=== PATIENT | male | born 1995 | race African-American/Black ===

== ENCOUNTER 2025-02-05 09:37 | Emergency (ER) | payer OTHER ==
[~2025-02-05] VITALS: Ht 170.2 cm; Wt 56.0 kg
[2025-02-05 09:39] VITALS: TEMP 98.2
[2025-02-05 10:26] LABS: BASOPHILS % (AUTO) 1.1 % (0.0-2.0); HEMATOCRIT 47.2 % (41-53); LYMPHOCYTES # (AUTO) 1.7 K/uL (1.0-4.8); MEAN CORPUSCULAR HEMOGLOBIN 26.4 pg (26.0-34.0); MEAN CORPUSCULAR HGB CONC 31.8 G/dL (31.0-37.0); MEAN CORPUSCULAR VOLUME 83 fL (80-100); MONOCYTES # (AUTO) 0.5 K/uL (0.1-1.0); MONOCYTES % (AUTO) 8.6 % (2.0-9.0); NEUTROPHILS # (AUTO) 3.4 K/uL (1.8-7.7); NEUTROPHILS % (AUTO) 58.3 % (40.0-70.0); PLATELET COUNT (AUTO) 228 K/uL (150-450); RED BLOOD CELL COUNT(AUTO) 5.67 MIL/uL (4.50-5.90); RED CELL DISTRIBUTION WIDTH 13.5 % (11.5-14.5); WHITE BLOOD COUNT (AUTO) 5.8 K/uL (4.5-11.0)
[2025-02-05 10:39] LABS: ANION GAP 4 mmol/L (8-16); CALCIUM, TOTAL 9.5 mg/dL (8.8-10.5); CARBON DIOXIDE 32 mmol/L (22-29); CHLORIDE 104 mmol/L (98-107); CREATININE 0.92 mg/dL (0.60-1.30); GLOMERULAR FILTR. RATE CALC > 60 mL/min (>60); GLUCOSE,RANDOM 57 mg/dL (70-110); POTASSIUM 4.5 mmol/L (3.5-5.1); SODIUM SERUM 140 mmol/L (136-145); UREA NITROGEN, BLOOD 11 mg/dL (7-18)
[2025-02-05 10:48] LABS: TROPONIN I-HIGH SENSITIVITY 8 ng/L (<76)
[2025-02-05] MEDS: KETOROLAC TROMETHAMINE 60 MG/2 ML VIAL IM ONE (11:11)
[2025-02-05 11:45] VITALS: BP 111/51; PULSE 53; RESP 17; O2SAT 99
[2025-02-05 13:13] LABS: TROPONIN I-HIGH SENSITIVITY 9 ng/L (<76)
[2025-02-05] MEDS ORDERED: IBUP-1492 PO (13:44)
== END 2025-02-05 14:00 | disposition home or self-care (01) ==
LOC: EMS 09:44
DX: R07.89 Other chest pain (principal)
CPT/HCPCS: 99285; 71045; 80048; 84484; 85025; 36415; 93005; 96372; J1885

== ENCOUNTER 2025-03-28 08:55 | Emergency (ER) | payer OTHER ==
[~2025-03-28] VITALS: Ht 170.2 cm; Wt 55.0 kg
[~2025-03-28 08:55] MED LIST: IBUP-1492 PO
[2025-03-28 08:59] VITALS: TEMP 98.1
[2025-03-28 09:25] LABS: EOSINOPHILS % (AUTO) 2.4 % (1.0-6.0); HEMATOCRIT 48.1 % (41-53); HEMOGLOBIN 15.8 g/dL (13.5-17.5); LYMPHOCYTES # (AUTO) 2.3 K/uL (1.0-4.8); LYMPHOCYTES % (AUTO) 52.7 % (22.0-44.0); MEAN CORPUSCULAR HEMOGLOBIN 26.8 pg (26.0-34.0); MEAN CORPUSCULAR HGB CONC 32.9 G/dL (31.0-37.0); MEAN CORPUSCULAR VOLUME 82 fL (80-100); MONOCYTES # (AUTO) 0.3 K/uL (0.1-1.0); MONOCYTES % (AUTO) 6.4 % (2.0-9.0); NEUTROPHILS # (AUTO) 1.7 K/uL (1.8-7.7); NEUTROPHILS % (AUTO) 37.5 % (40.0-70.0); PLATELET COUNT (AUTO) 231 K/uL (150-450); RED CELL DISTRIBUTION WIDTH 13.4 % (11.5-14.5); WHITE BLOOD COUNT (AUTO) 4.4 K/uL (4.5-11.0)
[2025-03-28 09:33] LABS: ANION GAP 5 mmol/L (8-16); CALCIUM, TOTAL 9.2 mg/dL (8.8-10.5); CARBON DIOXIDE 31 mmol/L (22-29); CHLORIDE 103 mmol/L (98-107); CREATININE 0.87 mg/dL (0.60-1.30); GLOMERULAR FILTR. RATE CALC > 60 mL/min (>60); GLUCOSE,RANDOM 83 mg/dL (70-110); POTASSIUM 4.5 mmol/L (3.5-5.1); SODIUM SERUM 139 mmol/L (136-145); UREA NITROGEN, BLOOD 12 mg/dL (7-18)
[2025-03-28 09:37] LABS: ALBUMIN 3.8 g/dL (3.4-5.0); BILIRUBIN,DIRECT 0.2 mg/dL (0.00-0.20); BILIRUBIN,TOTAL 0.7 mg/dL (0.1-1.0); TOTAL PROTEIN, SERUM 7.6 g/dL (6.4-8.2)
[2025-03-28] MEDS: FAMOTIDINE 20 MG TABLET PO ONE (09:41)
[2025-03-28 09:42] LABS: TROPONIN I-HIGH SENSITIVITY 14 ng/L (<76)
[2025-03-28] MEDS: ACETAMINOPHEN 325 MG TABLET PO ONE (09:42)
[2025-03-28 10:00] VITALS: BP 111/64; PULSE 56; RESP 18; O2SAT 98
[2025-03-28 11:47] LABS: TROPONIN I-HIGH SENSITIVITY 13 ng/L (<76)
== END 2025-03-28 12:19 | disposition home or self-care (01) ==
LOC: EMS 08:57
DX: R07.9 Chest pain, unspecified (principal); Z79.899 Other long term (current) drug therapy
CPT/HCPCS: 71045; 80048; 80076; 84484; 85025; 85379; 93005; 99285; 36415-L1; 36415-TC